=== PATIENT | male | born 1955 ===

== ENCOUNTER 2018-09-10 21:56 | Emergency (ER) | payer BC ==
[2018-09-10] MEDS ORDERED: Diphtheria,Pertussis(Acell),Tetanus Vaccine 0.5 ML SDV IM ONE (22:23)
--- NOTE | 2018-09-10 22:44 | EDM.PDOC ---
ED HPI GENERAL MEDICAL PROBLEM - General Chief Complaint: Laceration Stated Complaint: CUT FINGER ON RT HAND Time Seen by Provider: 09/10/18 22:20 Source of Information: Reports: Patient, RN, RN Notes Reviewed History Limitations: Reports: Other (Very ONE[place]) - History of Present Illness INITIAL COMMENTS - FREE TEXT/NARRATIVE: Pt to ER with c/o laceration to the right ring finger. He states he cut the finger at about 1730 with a drawing box tender. He states he is unsure when his last tetanus shot was. He came in at this time because the area continues to bleed, and has been painful. 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 Right Finger-Ring Pain Score (Numeric/FACES): 1 - Related Data Allergies Allergy/AdvReac Type Severity Reaction Status Date / Time No Known Allergies Allergy Verified 09/10/18 22:11 Home Meds: Home Meds Losartan/Hydrochlorothiazide [Losartan-HCTZ 100-12.5 MG] 1 tab PO DAILY [History] Multivitamin [Multi-Day Vitamins] 1 tab PO DAILY 09/10/18 [History] Past Medical History - Past Health History Medical/Surgical History: Denies Medical/Surgical History HEENT History: Reports: Hard of Hearing, Impaired Vision Cardiovascular History: Reports: Hypertension Musculoskeletal History: Reports: Other (See Below) Other Musculoskeletal History: Knee surg Social & Family History - Family History Family Medical History: Noncontributory - Tobacco Use Smoking Status *Q: Current Every Day Smoker Years of Tobacco use: 50 Packs/Tins Daily: 0.7 - Caffeine Use Caffeine Use: Reports: Coffee - Alcohol Use Days Per Week of Alcohol Use: 7 Number of Drinks Per Day: 6 Total Drinks Per Week: 42 - Recreational Drug Use Recreational Drug Use: No ED ROS GENERAL - Review of Systems Review Of Systems: ROS reveals no pertinent complaints other than HPI. ED EXAM, SKIN/RASH Exam: See Below Exam Limited By: Other (Very [place]) General Appearance: Alert, WD/WN, No Apparent Distress Eye Exam: Bilateral Eye: EOMI, Normal Inspection Ears: Normal External Exam, Hearing Loss Nose: Normal Inspection Throat/Mouth: Normal Inspection, Normal Voice, No Airway Compromise Head: Atraumatic, Normocephalic Neck: Normal Inspection, Supple, Non-Tender, Full Range of Motion Respiratory/Chest: No Respiratory Distress, Lungs Clear, Normal Breath Sounds, No Accessory Muscle Use, Chest Non-Tender Cardiovascular: Normal Peripheral Pulses, Regular Rate, Rhythm, No Edema, No Gallop, No JVD, No Murmur, No Rub Peripheral Pulses: 2+: Radial (L), Radial (R) GI/Abdominal: Normal Bowel Sounds, Soft, Non-Tender (Male) Exam: Deferred Rectal (Males) Exam: Deferred Back Exam: Normal Inspection, Full Range of Motion, NT Extremities: Normal Inspection, Normal Range of Motion, Non-Tender, No Pedal Edema, Normal Capillary Refill Neurological: Alert, Oriented, CN II-XII Intact, Normal Cognition, Normal Gait, Normal Reflexes, No Motor/Sensory Deficits Psychiatric: Normal Mood, Flat Affect Skin: Warm, Dry, Normal Color, No Rash, Other (laceration) Location, Skin: Upper Extremity, Right Characteristics: Linear Lymphatic: No Adenopathy ED SKIN PROCEDURES - Laceration/Wound Repair Right Medial Distal Digit - 4th (Ring) Lac/Wound length In cm: 1.5 Appearance: Superficial, Mildly Contaminated Skin Prep: Chlorhexidine (Hibiciens) Exploration/Debridement/Repair: Wound Explored, In a Bloodless Field, No Foreign Material Found Closed with: Dermabond Drain Placement: No Sterile Dressing Applied: Nurse Tetanus Status Addressed: Yes Complications: No Course - Vital Signs Last Recorded V/S: Last Vital Signs Temp 98 F 09/10/18 22:05 Pulse 80 09/10/18 22:22 Resp 16 09/10/18 22:05 BP 184/92 H 09/10/18 22:22 Pulse Ox 99 09/10/18 22:05 - Orders/Labs/Meds Orders: Active Orders 24 hr Category Date Time Status Vaccines to be Administered [RC] PER UNIT ROUTINE Care 09/10/18 22:24 Active Meds: Medications Discontinued Medications Generic Name Dose Route Start Last Admin Trade Name Freq PRN Reason Stop Dose Admin Diphtheria/Tetanus/Acell Pertussis 0.5 ml 09/10/18 22:23 09/10/18 22:37 Adacel IM 09/10/18 22:24 0.5 ml .ONCE ONE Administration Departure - Departure Time of Disposition: 22:42 Disposition: Home, Self-Care 01 Condition: Good Clinical Impression: Laceration - Discharge Information *PRESCRIPTION DRUG MONITORING PROGRAM REVIEWED*: No *COPY OF PRESCRIPTION DRUG MONITORING REPORT IN PATIENT CARLOS: No Instructions: Laceration Care, Adult, [id number], Stitches, Courtney, or Adhesive Wound Closure, [id number] Referrals: Sherron Ruiz NP [Primary Care Provider] - Forms: ED Department Discharge Additional Instructions: Keep area clean and dry Do not pick glue off, let it fall off on its own Follow up with your primary care facility if necessary - My Orders Last 24 Hours: My Active Orders 09/10/18 22:24 Vaccines to be Administered [RC] PER UNIT ROUTINE - Assessment/Plan Last 24 Hours: My Active Orders 09/10/18 22:24 Vaccines to be Administered [RC] PER UNIT ROUTINE
== END 2018-09-10 22:47 | disposition home or self-care (01) ==
LOC: DL.ED 21:56
DX: S61.214A Laceration without foreign body of right ring finger without damage to nail, initial encounter (principal); W26.8XXA Contact with other sharp object(s), not elsewhere classified, initial encounter; Z23 Encounter for immunization; I10 Essential (primary) hypertension; F17.200 Nicotine dependence, unspecified, uncomplicated; H91.90 Unspecified hearing loss, unspecified ear; Z79.899 Other long term (current) drug therapy
CPT/HCPCS: 12001; 90471; 90715; 99282

== ENCOUNTER 2020-12-17 08:57 | Emergency (ER) | payer BC ==
[2020-12-17] MEDS ORDERED: Bacitracin Oint 1 GM U/D Packet TOP ONE (09:36)
[2020-12-17] MEDS ORDERED: Lidocaine 1% 30 ML SDV INJECT ONE (09:36)
--- NOTE | 2020-12-17 10:36 | EDM.PDOC ---
Scribed by Rekha Sena 12/17/20 0938 for Sahil Edouard MD <Saritha Steward H - Last Filed: 12/17/20 10:43> ED HPI GENERAL MEDICAL PROBLEM - General Chief Complaint: Laceration Stated Complaint: SEVERE LACERATION LEFT HAND Time Seen by Provider: 12/17/20 09:12 - Related Data Allergies Allergy/AdvReac Type Severity Reaction Status Date / Time No Known Allergies Allergy Verified 09/10/18 22:11 Home Meds: Home Meds Losartan/Hydrochlorothiazide [Losartan-HCTZ 100-12.5 MG] 1 tab PO DAILY 09/10/18 [History] Multivitamin [Multi-Day Vitamins] 1 tab PO DAILY 09/10/18 [History] ED ROS GENERAL - Review of Systems Review Of Systems: See Below Constitutional: Reports: No Symptoms Respiratory: Reports: No Symptoms Cardiovascular: Reports: No Symptoms Skin: Reports: Lesions (Please see Exam for details. ) ED EXAM, SKIN/RASH Exam: See Below Text/Narrative:: 6cm elliptical laceration with skin flap present along the lateral aspect of the proximal 2nd digit. Neurovascularly intact. <2 sec cap refill. No other lacerations or abrasions noted. General Appearance: Alert, No Apparent Distress Throat/Mouth: Normal Inspection Head: Atraumatic, Normocephalic Respiratory/Chest: No Respiratory Distress Skin: Wound/Incision (6cm elliptical lesion present on proximal 2nd digit. Neurovascularily intact. ) ED SKIN PROCEDURES - Laceration/Wound Repair Left Upper Proximal Digit - 2nd (Index) Appearance: Subcutaneous, Other (eliptical ) Distal NVT: Neuro & Vascular Intact, No Tendon Injury Anesthetic Type: Local Local Anesthesia - Lidocaine (Xylocaine): 1% Plain Local Anesthetic Volume: 4cc Skin Prep: Saline, Sterile Drape Exploration/Debridement/Repair: Wound Explored, Explored to Base, No Foreign Material Found Closed with: Sutures Lac/Wound length In cm: 6 Suture Size: 4-0 # of Sutures: 2 Suture Type: Nylon # of Sutures: 14 Complications: No Progress/Comments: Wound was irrigated extensively along with soaked in a water basin. 4mL of Xylocaine 1% was used for local anesthetic with good result. Wound was explored again and irrigated a second time. No foreign bodies found in wound. 14 sutures were placed with 4-O Ethilon suture. Anatomic reapproximation was achieved with hemostasis. Wound was cleaned and dressed with bacitracin and gauze and tape. Procedure was completed by Saritha Steward MD PGY-[address] Edouard. -Saritha Steward MD PGY-2 Departure - Departure Disposition: Home, Self-Care 01 Clinical Impression: Laceration of left hand Qualifiers: Encounter type: initial encounter Foreign body presence: without foreign body Qualified Code(s): S61.412A - Laceration without foreign body of left hand, initial encounter - Discharge Information Instructions: Laceration Care, Adult Forms: ED Department Discharge Additional Instructions: Keep wound and sutures clean and as dry as possible. Follow up in clinic in 7 to 10 days for suture removal. Return to ER if any signs of wound infection develop. <Sahil Edouard - Last Filed: 12/17/20 11:22> ED HPI GENERAL MEDICAL PROBLEM - General Source of Information: Reports: Patient, RN, RN Notes Reviewed History Limitations: Reports: No Limitations Past Medical History - Past Health History Medical/Surgical History: Denies Medical/Surgical History HEENT History: Reports: Hard of Hearing, Impaired Vision Cardiovascular History: Reports: Hypertension Musculoskeletal History: Reports: Other (See Below) Other Musculoskeletal History: Knee surg Social & Family History - Family History Family Medical History: No Pertinent Family History - Caffeine Use Caffeine Use: Reports: Coffee Course - Vital Signs Last Recorded V/S: Last Vital Signs Temp 98.2 F 12/17/20 09:11 Pulse 88 12/17/20 09:11 Resp 18 12/17/20 09:11 BP 174/113 H 12/17/20 09:11 Pulse Ox 93 L 12/17/20 09:11 - Orders/Labs/Meds Meds: Medications Discontinued Medications Generic Name Dose Route Start Last Admin Trade Name Freq PRN Reason Stop Dose Admin Bacitracin 1 dose 12/17/20 09:36 12/17/20 09:53 Bacitracin Oint 1 Gm U/D Packet TOP 12/17/20 09:37 1 dose ONETIME ONE Administration Lidocaine HCl 30 ml 12/17/20 09:36 12/17/20 09:52 Lidocaine 1% 30 Ml Sdv INJECT 12/17/20 09:37 5 ml ONETIME ONE Administration - Re-Assessments/Exams Free Text/Narrative Re-Assessment/Exam: 12/17/20 I saw and evaluated the patient. Discussed with resident and agree with residents findings and plan as documented in the residents note. Departure - Departure Time of Disposition: 10:34 Condition: Good - Discharge Information *PRESCRIPTION DRUG MONITORING PROGRAM REVIEWED*: Not Applicable *COPY OF PRESCRIPTION DRUG MONITORING REPORT IN PATIENT CARLOS: Not Applicable Sepsis Event Note (ED) - Focused Exam Vital Signs: Vital Signs Temp Pulse Resp BP Pulse Ox 12/17/20 09:11 98.2 F 88 18 174/113 H 93 L I have read and agree with the documentation that has been completed regarding this visit. By signing this record, I attest that the documentation was completed in my physical presence and is an accurate record of the encounter.
== END 2020-12-17 10:47 | disposition home or self-care (01) ==
LOC: DL.ED 08:57
DX: S61.211A Laceration without foreign body of left index finger without damage to nail, initial encounter (principal); W25.XXXA Contact with sharp glass, initial encounter
CPT/HCPCS: 12002; 99282-25